=== PATIENT | female | born 1965 | race Caucasian/White ===

== ENCOUNTER → 2017-04-01 | Outpatient (CLI) | payer OTHER ==
[~2017-04-01] MED LIST: BENA40TA2 PO; CYCL5TAB PO; GABA300C10 PO; HYDR-882 PO; NEBI5TAB2 PO; SERT100T5 PO
[2017-04-01 10:12] LABS: ALANINE AMINOTRANSFERASE 29 U/L (12-78); ALBUMIN 4.1 g/dL (3.4-5.0); ANION GAP 8 mmol/L (5-15); BASOPHILS # (AUTO) 0.05 x10^3/uL (0-0.1); BASOPHILS % (AUTO) 1 % (0-1); CALCIUM 9.6 mg/dL (8.5-10.1); CHLORIDE 107 mmol/L (98-107); CREATININE 0.77 mg/dL (0.55-1.02); EOSINOPHILS % (AUTO) 3 % (1-7); LYMPHOCYTES # (AUTO) 2.86 x10^3/uL (1-3.4); LYMPHOCYTES % (AUTO) 36 % (22-44); MD NO; MEAN CORPUSCULAR HEMOGLOBIN 30.3 pg (27.0-34.8); MEAN CORPUSCULAR HGB CONC 34.4 g/dL (32.4-35.8); MEAN CORPUSCULAR VOLUME 88.2 fL (80-100); MEAN PLATELET VOLUME 8.5 fL (7.4-10.4); MONOCYTES # (AUTO) 0.33 x10^3/uL (0.2-0.8); MONOCYTES % (AUTO) 4 % (2-9); NEUTROPHILS # (AUTO) 4.46 x10^3/uL (1.8-6.8); NEUTROPHILS % (AUTO) 57 % (42-75); PLATELET COUNT 300 x10^3/uL (130-400); RED BLOOD COUNT 4.49 x10^6/uL (3.82-5.3); RED CELL DISTRIBUTION WIDTH 12.1 % (9.6-15.2)
[2017-04-01 10:14] LABS: ALKALINE PHOSPHATASE 75 U/L (45-117); BILIRUBIN,TOTAL 0.4 mg/dL (0.2-1.0); TOTAL PROTEIN 7.7 g/dL (6.4-8.2)
[2017-04-01 10:26] LABS: HEMOGLOBIN A1C 5.8 % (4.2-6.3)
[2017-04-01 10:36] LABS: INTERNATIONAL NORMALIZED RATIO 0.99 (0.93-1.1); PROTHROMBIN TIME 10.2 Seconds (9.6-11.5)
== END | disposition home or self-care (01) ==
LOC: STAR 08:54
PROVIDERS: ATTEND Orthopaedic Surgery
DX: Z01.818 Encounter for other preprocedural examination (principal); M17.11 Unilateral primary osteoarthritis, right knee
CPT/HCPCS: 36415; 80053; 83036; 85025; 85610; 85730; 87081; 87806; G0475

== ENCOUNTER 2017-04-11 07:25 | Inpatient (IN) | payer OTHER ==
[~2017-04-11] VITALS: Ht 172.7 cm; Wt 96.9 kg
[2017-04-11] MEDS ORDERED: LACTATED RINGERS 1,000 ML IV SCH (07:57)
[2017-04-11] MEDS ORDERED: MIDAZOLAM 1 MG/ML, 2ML ONE (07:58)
[2017-04-11] MEDS ORDERED: FENTANYL PF 100 MCG/2ML ONE ×2 (07:58→11:13)
[2017-04-11] MEDS ORDERED: ACETAMINOPHEN 500 MG TABLET PO ONE (08:00)
[2017-04-11] MEDS ORDERED: GABAPENTIN 300 MG CAPSULE PO ONE (08:00)
[2017-04-11] MEDS ORDERED: VANCOMYCIN PER PHARMACY MC STA (08:00)
[2017-04-11] MEDS ORDERED: ACETAMINOPHEN 500 MG TABLET ONE (08:03)
[2017-04-11] MEDS ORDERED: GABAPENTIN 300 MG CAPSULE ONE (08:03)
[2017-04-11 08:15] LABS: HCG UR SG 1.025 (1.003-1.030)
[2017-04-11] MEDS ORDERED: VANCOMYCIN 1,900 MG in SODIUM CHLORIDE 0.9% 250 ML IV ONE (08:30)
[2017-04-11] MEDS ORDERED: KETOROLAC 60 MG/2 ML ONE (08:31)
[2017-04-11] MEDS ORDERED: TRANEXAMIC ACID 100 MG/ML, 10ML ONE ×5 (08:31→09:59)
[2017-04-11] MEDS ORDERED: EPINEPHRINE 1 MG/ML, 1ML ONE (08:32)
[2017-04-11] MEDS ORDERED: ROPIvacaine/PF 0.2%, 20 ML ONE (08:32)
[2017-04-11] MEDS ORDERED: SODIUM CHLORIDE 0.9% 100 ML ONE (08:32)
[2017-04-11] MEDS ORDERED: SENNA/DOCUSATE TABLET PO PRN (09:30)
[2017-04-11] MEDS ORDERED: ONDANSETRON 2MG/ML, 2ML ONE (09:30)
[2017-04-11] MEDS ORDERED: DIPHENHYDRAMINE 25 MG CAPSULE PO PRN (09:30)
[2017-04-11] MEDS ORDERED: CEFAZOLIN 1,000 MG ONE (09:30)
[2017-04-11] MEDS ORDERED: HYDROmorphone 1 MG/ML, 1ML IV PRN ×2 (09:30→11:30)
[2017-04-11] MEDS ORDERED: ALUMINUM/MAG/SIMETHICONE 30 ML UDC PO PRN (09:30)
[2017-04-11] MEDS ORDERED: ONDANSETRON 4 MG TABLET PO PRN (09:30)
[2017-04-11] MEDS ORDERED: ACETAMINOPHEN 650 MG/20.3 ML UDC PO PRN (09:30)
[2017-04-11] MEDS ORDERED: BISACODYL 10 MG SUPP PR PRN (09:30)
[2017-04-11] MEDS ORDERED: MAGNESIUM HYDROXIDE 8%, 30ML UDC PO PRN (09:30)
[2017-04-11] MEDS ORDERED: ONDANSETRON 2MG/ML, 2ML IV PRN (09:30)
[2017-04-11] MEDS ORDERED: TRANEXAMIC ACID 1,000 MG in SODIUM CHLORIDE 0.9% 100 ML IVPB ONE (11:00)
[2017-04-11] MEDS ORDERED: METOCLOPRAMIDE 5 MG/ML, 2ML IV PRN (11:30)
[2017-04-11] MEDS ORDERED: hydrALAzine 20 MG/ML, 1ML IV PRN (11:30)
[2017-04-11] MEDS ORDERED: FENTANYL PF 100 MCG/2ML IV PRN (11:30)
[2017-04-11] MEDS ORDERED: LABETALOL 5MG/ML, 20ML IV PRN (11:30)
[2017-04-11] MEDS ORDERED: ACETAMINOPHEN 325 MG TABLET PO PRN (11:30)
[2017-04-11] MEDS ORDERED: ONDANSETRON 2MG/ML, 2ML IVPush PRN (11:30)
[2017-04-11] MEDS ORDERED: OXYcodone 5 MG/5 ML ORAL.SOL UDC ONE (11:52)
[2017-04-11] MEDS: OXYcodone 5 MG/5 ML ORAL.SOL UDC PO PRN (11:54)
[2017-04-11 13:00] VITALS: BP 115/73
[2017-04-11] MEDS ORDERED: OxyconTIN ER 10 MG TAB.ER ONE (14:06)
[2017-04-11] MEDS: OxyconTIN ER 10 MG TAB.ER PO SCH ×2 (14:11→21:22)
[2017-04-11] MEDS: OXYcodone IR 5MG TABLET PO PRN ×2 (16:40→21:22)
[2017-04-11] MEDS: DIAZEPAM 5 MG TABLET PO PRN (16:44)
[2017-04-11] MEDS: ASPIRIN 81 MG TABLET EC PO SCH (18:08)
[2017-04-11] MEDS: D5%-0.45NACL+KCL 20MEQ 1,000 ML IV SCH ×2 (18:08→22:00)
[2017-04-11] MEDS: CEFAZOLIN PMX 1GM/50ML 50 ML IVPB SCH (18:09)
[2017-04-11] MEDS ORDERED: HYDROmorphone 2 MG/ML, 1ML ONE (19:56)
[2017-04-11] MEDS ORDERED: BENAZEPRIL 20 MG TABLET PO SCH (21:00)
[2017-04-11] MEDS ORDERED: NEBIVOLOL HCL 5 MG TABLET PO SCH (21:00)
[2017-04-11] MEDS: DOCUSATE 100 MG CAPSULE PO SCH (21:21)
[2017-04-11] MEDS: GABAPENTIN 300 MG CAPSULE PO SCH (21:22)
[2017-04-11 22:05] VITALS: BP 96/63
[2017-04-12 00:54] VITALS: BP 92/64
[2017-04-12] MEDS: OXYcodone IR 5MG TABLET PO PRN ×3 (01:20→18:08)
[2017-04-12] MEDS: CEFAZOLIN PMX 1GM/50ML 50 ML IVPB SCH (01:30)
[2017-04-12] MEDS ORDERED: CEFAZOLIN PMX 1GM/50ML 50 ML ONE (03:58)
[2017-04-12] MEDS: DIAZEPAM 5 MG TABLET PO PRN (04:28)
[2017-04-12] MEDS: D5%-0.45NACL+KCL 20MEQ 1,000 ML IV SCH ×2 (05:09→15:09)
[2017-04-12 05:36] VITALS: BP 96/64
[2017-04-12] MEDS ORDERED: DEXAMETHASONE 4 MG/ML, 1ML IVPush SCH (06:00)
[2017-04-12 07:39] VITALS: BP 99/68
[2017-04-12] MEDS: ASPIRIN 81 MG TABLET EC PO SCH ×2 (07:43→18:08)
[2017-04-12] MEDS: GABAPENTIN 300 MG CAPSULE PO SCH (08:23)
[2017-04-12] MEDS: DOCUSATE 100 MG CAPSULE PO SCH (08:23)
[2017-04-12] MEDS: OXYcodone 5 MG/5 ML ORAL.SOL UDC PO PRN ×2 (08:24→09:53)
[2017-04-12] MEDS: OxyconTIN ER 10 MG TAB.ER PO SCH (08:24)
[2017-04-12] MEDS ORDERED: CYCLOBENZAPRINE 10 MG TABLET PO SCH (09:00)
[2017-04-12] MEDS ORDERED: TAMSULOSIN 0.4 MG CAP.ER.24H PO SCH (09:00)
[2017-04-12] MEDS ORDERED: SERTRALINE 100MG TABLET PO SCH (09:00)
[2017-04-12] MEDS: KETOROLAC 30 MG/1 ML IV SCH ×2 (09:44→16:42)
[2017-04-12 14:12] VITALS: BP 103/67
[2017-04-12] MEDS ORDERED: ONDA4TAB10 PO (15:23)
[2017-04-12] MEDS ORDERED: ASPI-191 PO (15:23)
[2017-04-12] MEDS ORDERED: CELE200C PO (15:24)
[2017-04-12] MEDS ORDERED: DOCU-131 PO (15:24)
[2017-04-12] MEDS ORDERED: DIAZ5TAB PO (15:26)
[2017-04-12] MEDS ORDERED: TRAM50TA2 PO (15:26)
[2017-04-12] MEDS ORDERED: OXYC5TAB2 PO (15:28)
[2017-04-12] MEDS ORDERED: OXYC10TA47 PO (15:29)
[2017-04-12 19:03] VITALS: BP 144/80
== END 2017-04-12 19:16 | disposition home or self-care (01) | DRG 470 ==
LOC: OUT 07:25 → ORIP 09:09 → EDSTATUS 09:30 → 4NOR 12:50
PROVIDERS: ADMIT Orthopaedic Surgery; ATTEND Orthopaedic Surgery
PROC: 0SRC069 Replacement of Right Knee Joint with Oxidized Zirconium on Polyethylene Synthetic Substitute, Cemented, Open Approach (ICD-10-PCS; principal; 2017-04-12)
DX: M17.11 Unilateral primary osteoarthritis, right knee (principal); Z87.891 Personal history of nicotine dependence
CPT/HCPCS: 36415; 81025; 85014; 85018; C1713; J0171; J0690; J1100; J1170; J1885; J2250; J2405; J2795; J3010; J3370; C1776; J3480; J7050; J7120